=== PATIENT | male | born 1990 | race Two or more races ===

== ENCOUNTER 2017-10-19 11:45 | Emergency (ER) | payer OTHER ==
[2017-10-19 11:56] VITALS: BP 128/79
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
== END 2017-10-19 12:55 | disposition home or self-care (01) ==
LOC: ER 11:51
DX: H93.231 Hyperacusis, right ear (principal)
CPT/HCPCS: 99281